=== PATIENT | female | born 1965 | race Caucasian/White ===

== ENCOUNTER → 2019-05-24 | Day surgery (SDC) | payer OTHER ==
[~2019-05-24] MED LIST: ACETAMINOPHEN 325 MG TABLET PO PRN; ALBUTEROL SULFATE 2.5 MG/3 ML NEBU. NEB PRN; ATROPINE 0.5 MG/5 ML DISP.SYRIN. IV PRN; CITA40TA12 PO; IV RINGERS SOLUTION,LACTATED 1,000 ML IV SCH; MULT-245 PO; PHENOL ORAL SPRAY 177ML BOTTLE. MM PRN; PROPOFOL 40 ML IV ONE; TRAM50TA PO; diphenhydrAMINE 50 MG/ML VIAL IV PRN
[2019-05-24 12:29] VITALS: BP 106/60
== END ==
LOC: SURG 10:26
PROVIDERS: ATTEND Emergency Medicine
DX: Z12.11 Encounter for screening for malignant neoplasm of colon (principal); K63.89 Other specified diseases of intestine; Z98.51 Tubal ligation status; Z98.890 Other specified postprocedural states; Z96.651 Presence of right artificial knee joint
CPT/HCPCS: 45378; J2704; J7120